=== PATIENT | male | born 1945 | race Two or more races ===

== ENCOUNTER 2019-04-14 08:23 | Emergency (ER) | payer OTHER ==
[~2019-04-14] VITALS: Ht 170.2 cm; Wt 84.8 kg
[2019-04-14 08:28] VITALS: Ht 170.2 cm; Wt 84.8 kg
[2019-04-14 10:05] LABS: CALCIUM 8.3 mg/dL (8.5-10.1); CARBON DIOXIDE 25.9 mmol/L (21-32); CHLORIDE SERUM 107 mmol/L (98-107); CREATININE SERUM 0.6 mg/dL (0.7-1.3); GLUCOSE SERUM 63 mg/dL (74-106); POTASSIUM SERUM 3.8 mmol/L (3.5-5.1); SODIUM SERUM 141 mmol/L (136-145)
[2019-04-14 10:10] LABS: ALBUMIN 3.6 g/dL (3.4-5.0); ALKALINE PHOSPHATASE 77 U/L (46-116); ALT/SGPT 29 U/L (16-63); AST/SGOT 19 U/L (15-37); BILIRUBIN TOTAL 0.32 mg/dL (0.20-1.00); TOTAL PROTEIN, SERUM 7.5 g/dL (6.4-8.2)
[2019-04-14 10:27] LABS: PLATELET COUNT 201 x10^3mcL (130-400); RED CELL DISTRIBUTION WIDTH 14.1 % (11.5-14.5)
[2019-04-14 11:40] VITALS: BP 130/76
[2019-04-14 13:33] LABS: MONOCYTE 8 % (0-7); SEGMENTED NEUTROPHILS 69 % (37-75)
[2019-04-14 13:35] LABS: PLATELET MORPHOLOGY NORMAL; rbc morphology (normal/abnorm) NORMAL (NORMAL)
== END 2019-04-14 11:40 | disposition home or self-care (01) ==
LOC: ED 08:23
PROVIDERS: Emergency Medicine
DX: R00.2 Palpitations (principal); I10 Essential (primary) hypertension; E11.9 Type 2 diabetes mellitus without complications
CPT/HCPCS: 36415; Q0092